=== PATIENT | male | born 1965 | race African-American/Black ===

== ENCOUNTER 2021-07-15 10:01 | Emergency (ER) | payer OTHER ==
[~2021-07-15] VITALS: Ht 175.3 cm; Wt 81.7 kg
[2021-07-15 10:07] VITALS: BP 190/115
[2021-07-15] MEDS ORDERED: CARVEDILOL12.5 MG PO (10:10)
[2021-07-15] MEDS ORDERED: NORVASC5 MG PO (10:10)
== END 2021-07-15 10:34 | disposition home or self-care (01) ==
LOC: ER 10:01
PROVIDERS: Emergency Medicine
DX: U07.1 COVID-19 (principal); I10 Essential (primary) hypertension; Z79.899 Other long term (current) drug therapy

== ENCOUNTER 2021-07-24 13:36 | Emergency (ER) | payer OTHER ==
[~2021-07-24] VITALS: Ht 175.3 cm; Wt 79.4 kg
[~2021-07-24 13:36] MED LIST: CARVEDILOL12.5 MG PO; NORVASC5 MG PO
[2021-07-24 13:41] VITALS: BP 157/101
[2021-07-24] MEDS ORDERED: ONDANSETRON HCL4 M2 PO (14:06)
[2021-07-24] MEDS ORDERED: PROAIR HFA8.5 GM INH ×2 (14:06→16:23)
[2021-07-24] MEDS ORDERED: MEDROLDOSEPACK PO ×2 (14:06→16:23)
== END 2021-07-24 14:18 | disposition home or self-care (01) ==
LOC: ER 13:36
DX: U07.1 COVID-19 (principal); I10 Essential (primary) hypertension; Z79.899 Other long term (current) drug therapy